=== PATIENT | male | born 1950 | race Caucasian/White ===

== ENCOUNTER 2019-03-02 09:25 | Day surgery (SDC) | payer OTHER ==
--- OUTSIDE RECORDS SUMMARY | 2019-03-02 09:31 | XMS REPORT ---
:1950 [facility] Address [address] [place] [address] Dr. Akhtar [address] [place] [id number] Care Team Providers Name Role Phone Unavailable Unavailable Unavailable Problems This patient has no known problems. Allergies, Adverse Reactions, Alerts This patient has no known allergies or adverse reactions. Medications This patient has no known medications.
[2019-03-02 09:56] LABS: Absolute Lymphocytes (CBC) 1.8 K/uL (0.7-4.9); Absolute Monocytes 0.6 K/uL (0.1-1.3); Absolute Neutrophil 3.4 K/uL (1.8-8.0); Basophils % 1.1 % (0-1.3); Eosinophils % 2.1 % (0-4.4); Hematocrit 45.8 % (39.6-49.0); Lymphocytes % 30.1 % (15.3-44.8); MPV 7.5 fL (7.6-11.3); Monocytes % 9.9 % (3.3-12.3); RBC Red Blood Cell Count 5.09 M/uL (4.33-5.43)
--- NOTE | 2019-03-02 10:19 | RAD REPORT ---
EXAM DESCRIPTION: Salena Greenwood And Tato (2 Views)03/02/2019 10:10 am CLINICAL HISTORY: Preop for hernia repair COMPARISON: None FINDINGS: Nodular opacity overlying the left base most likely represents a nipple shadow. Follow-up chest x-ray in 6 months with a left nipple marker recommended Otherwise lungs appear clear. Heart is normal size
[2019-03-02] MEDS ORDERED: Ringers Lactate 1,000 ML IV ONE ×2 (10:37→16:45)
[2019-03-02 10:55] LABS: Potassium 3.9 mmol/L (3.5-5.1)
--- NOTE | 2019-03-02 11:23 | EKG ---
Test Date: 2019-03-02 Test Time: 09:47:51 Disability Manager: AMANDA MEASUREMENT RESULTS: Intervals: Rate: 53 CO: 178 QRSD: 108 QT: 410 QTc: 384 [place]: P: 29 CO: 178 QRS: 10 T: 31 INTERPRETIVE STATEMENTS: Sinus bradycardia with sinus arrhythmia Incomplete left bundle branch block Borderline ECG No previous ECG available for comparison Electronically Signed On 03-02-19 11:22:31 CDT by Aries Jerome
[2019-03-02] MEDS ORDERED: CEFAZOLIN/SWI 1gm 1 GM/10 ML SYR ONE (12:48)
[2019-03-02] MEDS: HYDROMORPHONE HCL 1 MG/ML INJ ONE ×6 (13:33→15:53)
[2019-03-02] MEDS ORDERED: LIDOCAINE 2% MPF 5 ML VIAL ONE (13:48)
[2019-03-02] MEDS ORDERED: FENTANYL CITR 250 MCG/5 ML ONE (13:48)
[2019-03-02] MEDS ORDERED: ROCURONIUM 50 MG/5 ML VIAL IV ONE (13:48)
[2019-03-02] MEDS ORDERED: PROPOFOL 200 MG/20 ML VIAL IV ONE (13:48)
[2019-03-02] MEDS ORDERED: DEXAMETHASONE 10 MG/ML VIAL ONE (13:48)
[2019-03-02] MEDS ORDERED: MIDAZOLAM HCL 2 MG/2 ML INJ ONE (13:48)
[2019-03-02] MEDS ORDERED: EPHEDRINE SULF 50 MG/ML VIAL ONE (14:36)
[2019-03-02] MEDS ORDERED: GLYCOPYRROLATE 0.2 MG/ML SYR ONE (15:22)
[2019-03-02] MEDS ORDERED: NEOSTIGMINE 1 MG/ML -10 ML VIAL ONE (15:22)
[2019-03-02] MEDS ORDERED: KETOROLAC 30 MG/ML INJ ONE (15:23)
--- NOTE | 2019-03-02 15:23 | P.BOP ---
Preoperative diagnosis: large tender right inguinal hernial Postoperative diagnosis: same Primary procedure: Open repair of large tender right inguinal hernia Energy Efficiency Engineer: MARY CERNA (BREAKDOWN PERSON) Estimated blood loss: <10cc Specimen: none Findings: see dictation, direct inguinal hernia Anesthesia: General Complications: None Transferred to: Recovery Room Condition: Good
[2019-03-02] MEDS ORDERED: CODEINE 30MG/APAP 300MG TAB ONE (16:50)
[2019-03-02] MEDS ORDERED: ONDANSETRON 4 MG/2 ML VIAL ONE (17:35)
--- NOTE | 2019-03-03 05:12 | OP ---
Date of Procedure: 03/02/2019 Surgeon: David Donaldson MD Certified Medication Technician: Marisol Garcia. Preoperative Diagnosis: Large tender right inguinal hernia. Postoperative Diagnosis: Large tender right inguinal hernia. Procedure: Open repair of large tender right inguinal hernia with mesh. Anesthesia: General plus local. Findings: The patient had right large inguinal hernia. When we put the cameras in, in a laparoscopi c attempt, we noticed the hernia was too big to be done laparoscopically in a safe manner, so we conv erted to an open technique as explained to the patient previously. Indications: This is the case of a patient who comes to us with a large right inguinal hernia. Bene fits, alternatives, and risks of laparoscopic, possible open, repair with mesh were fully explained t o the patient, which include but are not limited to infection, bleeding, damage to adjacent structure s, anesthesia complication, a recurrence, [place], even . He also understands this might not relieve any symptoms and he might need more than one surgical intervention. He was explained the pros and c ons of surgical intervention and also the pros and cons of mesh placement. We explained to him the d etails of it. Patient was allowed to ask questions and they were answered to his satisfaction. He s igned a consent. He did allow me to use mesh. Description Of Procedure: The patient was brought to the operating room, placed in supine position. Anesthesia was done without complication. A time-out was called. Abdominal area and inguinal area were prepped and draped in a sterile fashion. Local anesthesia was applied, followed by sharp incisi on of the skin in the infraumbilical region. Incision was carried down until we find the anterior re ctus sheath. We opened the rectus sheath from most of the sides. We found the posterior rectus allred th. A single-lumen space-maker were placed over the area. During insufflation, on visualization, we noticed that the area will not insufflate that we would want and the anatomy is not good due to the large size of the hernia. Patient was explained before. He still wanted me to try laparoscopically, but this large sized hernia will not be able to be fixed safely with this technique, so I proceeded to remove the space-maker. I closed the anterior rectus sheath with #1 Vicryl and the skin approxima michael. We went to the right inguinal region. We made an incision in that area, opened external obliqu e aponeurosis in the direction of the fibers after opening the skin and Wicho's fascia. The ilioing uinal nerve and iliohypogastric nerve were protected behind external oblique aponeurosis. The patien t was placed in Trendelenburg position. A [place] was placed around the spermatic cord. Direct pito ia near the ring was identified. The hernia sac feels better imbricated. So, we imbricated the pito ia sac. Placed the mesh plug over that area. Secured that with VersaTack. Then, we used a mesh she et to reconstruct the floor of the canal, securing that to the pubic tubercle, shelving edge of ingui nal ligament, transversalis fascia, and the tail looped around the spermatic cord without strangulati on. The area was irrigated. Ilioinguinal nerve and iliohypogastric nerve were protected at all time s. Spermatic cord was inspected. No indirect hernia seen. The cord structures were skeletonized an d protected at all times. Vas deferens was also protected. The mesh sheet was placed in the pubic t ubercle, shelving edge of the inguinal ligament, transversalis fascia, and the tail was wrapped aroun d the spermatic cord without strangulation. The area was irrigated. The ilioinguinal nerve and ilio hypogastric nerve were brought back into the inguinal canal. A superficial inguinal ring was reconst ructed and external oblique aponeurosis was closed making sure the nerves were not included. The are a was irrigated. Wicho's fascia was approximated with 3-0 chromic and the skin was approximated. S ponge count and instrument counts were correct. The patient tolerated the procedure well. The testi cles were within the scrotum. The patient was sent to recovery in stable condition. JOSSUE/YUKI Voice ID: [id number] Report ID: [id number]
--- NOTE | 2019-03-03 05:18 | DS ---
Date of Discharge: 03/02/2019 Diagnosis: Tender right inguinal hernia, large. Procedure: Open repair of large tender right inguinal hernia. Disposition: Home. Activity: As tolerated. No heavy lifting. Followup: Follow up in my office in 1 week, call for appointment [phone]. Keep area dry for 48 hours, then may shower. Medications: For medications, see orders. JOSSUE/YUKI Voice ID: [id number] Report ID: [id number]
== END 2019-03-02 18:30 | disposition home or self-care (01) ==
LOC: OR 09:25
PROVIDERS: ATTEND Surgery
PROC: 0YU50JZ Supplement Right Inguinal Region with Synthetic Substitute, Open Approach (ICD-10-PCS; principal; 2019-03-02 11:45)
DX: K40.90 Unilateral inguinal hernia, without obstruction or gangrene, not specified as recurrent (principal); Z79.82 Long term (current) use of aspirin; Z79.899 Other long term (current) drug therapy
CPT/HCPCS: 49505; 93005; 85025; 80048; 36415; 71046; J2704; J2710; J2250; J3010; J1100; J1170 ×2; J0690; J2405